=== PATIENT | female | born 1990 | race Caucasian/White ===

== ENCOUNTER → 2024-11-18 09:32 | Outpatient (CLI) | payer OTHER, SELFPAY ==
[2024-11-18 09:45] LABS: Hematocrit 33.5 % (36-46); Hemoglobin 11.5 g/dL (12.0-16.0)
== END ==
PROVIDERS: PCP Family Medicine; Referring Provider Family Medicine; Visit Provider Family Medicine
DX: O99.013 Anemia complicating pregnancy, third trimester (principal)
CPT/HCPCS: 36415; 85014; 85018; 86850; 86900; 86901

== ENCOUNTER → 2024-12-12 12:05 | Outpatient (CLI) | payer OTHER, SELFPAY ==
[2024-12-13 13:02] LABS: Strep Grp B PCR POS for Grp B Strep
== END ==
LOC: LAB 12:05
PROVIDERS: PCP Family Medicine; Visit Provider Family Medicine
DX: Z3A.36 36 weeks gestation of pregnancy (principal)
CPT/HCPCS: 87653

== ENCOUNTER 2024-12-26 23:02 | Inpatient (IN) | payer OTHER, SELFPAY ==
[2024-12-26] MEDS: AMPICILLIN 2,000 MG in SODIUM CHLORIDE 0.9% 100 ML 200 MG IV (23:42)
[2024-12-26 23:46] LABS: Add Manual Diff / Slide Review NO; Hematocrit 35.8 % (36-46); Hemoglobin 12.5 g/dL (12.0-16.0); Lymphocytes Absolute Auto 1500 /uL (1100-4500); Mean Corpuscular HGB Conc 34.9 % (30-36); Mean Corpuscular Hemoglobin 31.6 PG (26-34); Mean Corpuscular Volume 90.7 fL (80-100); Platelet Count 166 X10^3/uL (150-400)
[2024-12-27] MEDS: OXYTOCIN PREMIX 30 UNIT/500 ML PLAST..BAG 200 UNIT IV (01:20)
--- NOTE | 2024-12-27 01:32 | P.HPOB_ITS ---
OB HPI Date/Time Date of admission: 12/26/24 Date Patient Seen: 12/28/24 Time Patient Seen: 01:05 History of Present Condition Chief complaint: Labor FERNANDO Calculator 2 Estimated Delivery Date Method Current WG Current Estimate 01/04/25 LMP (Certain) 38w 6d : 4 Para: 2 Narrative: 34-year-old at [place] 38+6 weeks presenting for labor. Endorses normal movement. Denies vaginal bleeding or denies leakage of fluid. course notable for anemia on PO iron supplement. care: good care Dating criteria OB: LMP confirmed by 1st trimester US Ultrasounds: normal 1st trimester US and normal mid trimester US Obstetrical complications: none Medical complications OB: none Preadmission Labs Last OB Lab Results: 2 Blood Type O Positive 12/26/24, 23:32 Antibody Screen Negative 12/26/24, 23:32 Hct, (36-46) 35.8 % L 12/26/24, 23:32 Hgb, (12.0-16.0) 12.5 g/dL 12/26/24, 23:32 Group B Strep (PCR) Pos for grp b strep H 12/12/24, 12:08 Glucose Tolerance Testin hr -: Chlamydia screen: negative and Gonorrhea screen: negative Genetic Screens: Cell-free DNA: Normal Prior (ies) Past Pregnancies Del. Date GA/Weeks Labor Lgth Wt Sex Route Outcome Anesthesia Place Delv Breastfeed Preg Comp Name 12/11/19 ~8 spontaneous 10/06/20 38 4 7 lb 6 oz Female vaginal live - full ter m none [place], [place] 1 year other [place] 07/18/22 40.2 6 7 lb 13 oz Male vaginal live - full te rm epidural [place], [place] 1 year none [place] Delivery Date: 12/11/19 Last Updated by: Sofiya Zartae RN passed spontaneously, no complications Delivery Date: 10/06/20 Last Updated by: Sofiya Zarate RN [facility] 1st trimester, precip delivery Evaluation Evaluation Baseline heart rate: 155 Variability: Moderate (6-25) monitor accelerations: Present Monitor Decelerations: Early and Variable Contraction Frequency (minutes): 2 Status: Category ll Dilation (cm): 10 Effacement (%): 100 station: +2 [facility] Medical History (Updated 12/15/24 @ 11:05 by Sin Resendiz MD) Fractures Anemia affecting Abdominal hernia Surgical History (Updated 10/26/24 @ 20:18 by Carrie Elkins) Anesthesia History of umbilical hernia repair (~1998) [place] teeth extracted (~2011) Family History (Updated 10/26/24 @ 20:19 by Carrie Elkins) Father Hypertension Aunt Fuentes syndrome Mother ALS (amyotrophic lateral sclerosis) Hemochromatosis Grandmother History of heart disease Social History marital status: number of children: 2 household members: spouse and children lives independently: Yes caregiver/support person: Yes housing: house pets and animals: Yes (dogs) education level: master's degree (special education) occupational status: previously employed current occupational exposures/hazards: No special javier needs: No travel history: recent (domestic only) seatbelt use: always helmet use: Yes water heater temp set < 120 deg: Yes working smoke detector in home: Yes fire extinguisher in home: Yes carbon monox detector in home: Yes firearms in home: Yes firearms unloaded and locked: Yes do you feel safe at home: Yes Smoking Status: Never smoker second hand exposure: No alcohol intake: former (occasionally when not ) substance use type: does not use during the past year weight has: other (back to non- weight prior to conception) well-balanced diet: daily or most days daily servings fruits/ve or more times/day caffeine: Yes Type(s) of exercise: walking, weight lifting and running Meds Home Medications and Allergies Home Medications ?Medication ?Instructions ?Recorded ?Confirmed ?Type vitamin-ferrous sulfate tab PO 10/01/2411/28 History 27 mg iron-folic acid 0.8 mg tablet ferrous sulfate 325 mg (65 mg 325 mg PO Q OTHER DAY #3 0 tabs 11/28/24 11/28/24 Rx iron) tablet (FeroSul) Allergies Allergy/AdvReac Type Severity Reaction Status Date / Time No Known Drug Allergies Allergy Verified 12/26/24 11:43 OB Exam Narrative Exam Narrative: General: Well-nourished, no distress HEENT: NC/AT, EOMI, moist mucous membranes CV: RRR, normal S1 S2, no m/g/r Resp: CTAB Abd: Gravid, soft, NTND, +BS Ext: Full ROM, no edema Skin: No rash or lesions Neuro: A&O x3, normal tone, no focal deficits Objective Labs 12/26/24 23:32 Labs: Laboratory Results - last 24 hr 12/26/24 23:32 WBC 5.6 RBC 3.95 L Hgb 12.5 Hct 35.8 L MCV 90.7 MCH 31.6 MCHC 34.9 RDW 13.8 Plt Count 166 Neut % (Auto) 56.7 Lymph % (Auto) 26.3 [place] % (Auto) 13.7 Eos % (Auto) 0.9 L Baso % (Auto) 2.4 H Neut # (Auto) 3200 Lymph # (Auto) 1500 [place] # (Auto) 800 Eos # (Auto) 0 Baso # (Auto) 100 Blood Type O Positive Antibody Screen Negative Assessment and Plan Assessment and Plan Assessment and Plan narrative: 34-year-old at [place] 38+3 weeks presenting for labor. -admit to L&D -GBS positive, ppx indicated -pain control prn if desired by patient -PPH risk low -VTE risk low, SCDs with epidural -anticipate vaginal delivery Time-Based Coding :: 20 minutes spent with patient and on the chart (including review of chart, obtaining history, exam, reviewing outside data, placing orders, documenting exam and treatment plan, and counseling patient) on 12/27/2024.
--- NOTE | 2024-12-27 01:40 | P.PCNOB_ITS ---
Labor & Delivery Delivery date: 12/27/24 Delivery Time: 01:15 Intrapartal Events: Acceleration and Deceleration Delivery monitor: external FHT and external uterine Route of delivery: L&D Laceration Description: None Estimated blood loss (mL): 300 Narrative: Patient fully dilated at 0048 and began pushing at 0114. Spontaneous vaginal delivery of a viable male infant in the DENISSE position occurred at 0115. The was suctioned and stimulated at the perineum, and gave appropriate cry with movement of all extremities. Delayed cord clamping was observed for > 60 seconds. The cord was clamped and cut, and the handed to mother for skin to skin. Cord blood and segment were obtained. The placenta was delivered without difficulty using gentle cord traction and found to be intact with a 3- vessel cord. After fundal massage the uterus was firm and bleeding stopped. The vagina and cervix were examined for lacerations, with none noted Patient stable with rooming in, bonding skin to skin and attempting to breastfeed. [place] Baby 1: Infant gender: Male Presentation: vertex Position: Left Occiput Anterior Placenta delivery description: Spontaneous Cord Vessel Description: 3 Vessels score (1 min): 9 score (5 min): 9 weight: 7 lb 15.621 oz Plan for aftercare: Routine care
[2024-12-27] MEDS: LACTATED RINGERS 1,000 ML 100 ML IV (03:16)
--- NOTE | 2024-12-27 08:27 | PM.AN.REGBLK ---
Regional Block Pre-procedure Procedure: Continuous Lumbar Epidural for L&D Attending OB provider: Sin Resendiz PMH/ROS narrative: at [place] 38+6 active labor. No obstetric or medical complications. h/p precipitous delivery. ASA Class: II Labs: Hct 35.8 % (36-46) L 12/26/24 23:32 Plt Count 166 X10^3/uL (150-400) 12/26/24 23:32 Medications: Current Medications Generic Name Dose Route Start Last Admin Trade Name Freq PRN Reason Stop Dose Admin Acetaminophen 650 mg 12/27/24 03:17 Acetaminophen 325 Mg Tablet PO Q6H PRN Pain, Mild (1-3) Benzocaine 1 spray 12/27/24 03:17 Dermoplast [place] 20% 60 Ml TOP Q1HR PRN Pain, Moderate (4-6) Carboprost Tromethamine 250 mcg 12/27/24 03:17 Carboprost 250 Mcg/Ml Ampul IM Q20MIN PRN Uterine Bleeding Emollient Ointment 1 applic 12/27/24 03:17 Lanolin Oint 7 Gm TOP PRN PRN Sore Nipples Oxytocin/Lactated Ringer's 30 unit in 500 mls @ 95 mls/hr 12/27/24 03:17 Oxytocin Premix IV 12/27/24 08:32 NOW ONE Protocol Tranexamic Acid 1,000 mg/ 100 mls @ 600 mls/hr 12/27/24 03:17 Sodium Chloride IV NOW PRN Uterine Bleeding Ibuprofen 600 mg 12/28/24 01:45 Ibuprofen 600 Mg Tablet PO Q6H MARTINE Methylergonovine Maleate 0.2 mg 12/27/24 03:17 Methylergonovine 0.2 Mg/Ml Vial IM NOW PRN Uterine Bleeding Misoprostol 800 mcg 12/27/24 03:17 Misoprostol 200 Mcg Tablet SL NOW PRN Uterine Bleeding Naloxone HCl 0.2 mg 12/27/24 03:17 Naloxone 0.4 Mg/Ml Vial IV Q2MIN PRN Opiate Reversal Oxytocin 10 unit 12/27/24 03:17 Oxytocin 10 Unit/Ml Vial IM NOW PRN Uterine Bleeding Witch Mounika/Glycerin 1 each 12/27/24 03:17 Witch [place]/Glycerin Pads TOP Q30M PRN Itching Allergies: Allergies Allergy/AdvReac Type Severity Reaction Status Date / Time No Known Drug Allergies Allergy Verified 12/26/24 11:43 Procedure Insertion date: 12/27/24 Insertion time: 00:10 Prep/Local: betadine x3 and 1% lidocaine Interspace: L34 Patient position: sitting Needle: 18 gauge Hustead (CSE: 27g Pencan through Hustead, clear CSF, 1mL 0.25% MPF bupiv) Loss of resistance with: saline ILIA at (cm): 3 Catheter placed at SKIN (cm): 8 Catheter in SPACE (cm): 5 Insertion: No CSF, No Blood, No Paresthesia with insertion, No Paresthesia with injection and No Test dose reaction Initial Medications TEST DOSE time: 00:11 TEST DOSE: 1.5% lidocaine with epinephrine 1:200k (mL): 3 BOLUS DOSE time: 00:21 BOLUS DOSE (mL): 3 BOLUS DOSE med: other (infusate) Infusion INFUSION: 0.125% bupivacaine and with fentanyl 2 mcg/mL Initial rate (mL/hr): 8 Post-procedure Anesthesia date START: 12/26/24 Anesthesia time START: 23:59 Anesthesia date END: 12/27/24 Anesthesia time END: 01:25 Post-procedure Anesthesia Assessment: Yes CV function: HR/BP stable, Yes Resp function: RR/sat/airway adequate, Yes Post-op hydration adequate, Yes Pain control adequate, Yes Nausea & vomiting absent, Yes Temperature > 36 C, Yes Mental status appropriate and No Anesthesia complications
[2024-12-27] MEDS: DERMOPLAST SPRAY 20% 60 ML 1 SPRAY TOP (09:21)
[2024-12-27] MEDS: ACETAMINOPHEN 325 MG TABLET 650 MG PO (14:29)
[2024-12-27] MEDS: IBUPROFEN 600 MG TABLET PO (14:29)
--- NOTE | 2024-12-27 18:05 | PM.OBDS.1 ---
Discharge Providers Provider Date of admission: 12/26/24 23:02 Discharge Date: 12/27/24 Primary care physician: Sin Resendiz MD Consults: 12/26/24 23:22 Consult to Anesthesiology Urgent Comment: Consulting Provider: Anesthesiologist Reason for consultation: Epidural Has provider been notified: No 12/27/24 03:17 Consult to Customer Quality Engineer Routine Comment: Discharge provider: Sin Resendiz MD Summary Hospital Course Date Patient Seen: 12/27/24 Time Patient Seen: 18:05 Diagnoses: # # mother Hospital Course: Admitted for normal labor on 12/26/2024. Progressed adequately without augmentation to complete dilation over the course of 4 hours. She had an uncomplicated of a live male infant with no lacerations. Her course was uncomplicated. At discharge patient is ambulating well, tolerating normal diet, breast-feeding without difficulty, and pain is adequately controlled. She reports bleeding is slightly heavier than normal menses. Peripartum Data Delivery Method: Natural Vaginal Laceration Description: None 1: Gender: Male Disposition of : home Discharge Diagnosis (1) (spontaneous vaginal delivery): Status: Acute (2) Breast feeding status of mother: Status: Acute Status at Discharge Cognitive/behavioral status at discharge: at baseline, oriented Functional status at discharge: independent ambulation Overall status at discharge: patient is back to baseline Time Spent with Patient Time attestation: Total time spent providing and/or coordinating discharge services: 30 minutes Objective Labs 12/26/24 23:32 Labs: Laboratory Results - last 24 hr 12/26/24 23:32 WBC 5.6 RBC 3.95 L Hgb 12.5 Hct 35.8 L MCV 90.7 MCH 31.6 MCHC 34.9 RDW 13.8 Plt Count 166 Neut % (Auto) 56.7 Lymph % (Auto) 26.3 [place] % (Auto) 13.7 Eos % (Auto) 0.9 L Baso % (Auto) 2.4 H Neut # (Auto) 3200 Lymph # (Auto) 1500 [place] # (Auto) 800 Eos # (Auto) 0 Baso # (Auto) 100 Blood Type O Positive Antibody Screen Negative Exam Narrative Exam Narrative: General: Well-appearing, well-nourished, no distress HEENT: Moist mucous membranes, no pallor CV: Regular rate and rhythm, no murmur auscultated Resp: CTAB, comfortable work of breathing Abdomen: Soft, bowel sounds present, fundus firm below umbilicus with appropriate tenderness Extremities: No edema, no calf tenderness or evidence of DVT Discharge Plan Discharge Plan Patient Disposition: Home Discharge orders & Medications Prescriptions: New ibuprofen 600 mg Tablet 600 mg PO Q6H Qty: 60 1RF acetaminophen 325 mg Tablet 650 mg PO Q6H PRN (Reason: Pain, Mild (1-3)) Qty: 60 1RF Purelan Cream 1 applic topical PRN PRN (Reason: Sore Nipples) Qty: 7 11RF polyethylene glycol 3350 17 gram/dose powder 17 g PO DAILY Qty: 510 1RF Continued ferrous sulfate [FeroSul] 325 mg (65 mg iron) tablet 325 mg PO Q OTHER DAY Qty: 30 1RF vit-ferrous sulfat-FA 27 mg iron- 0.8 mg tablet PO Follow up/Referrals: Sin Resendiz MD [Primary Care Provider, Family Practice] Visit Report/Discharge Packet Stand Alone Forms: Patient Portal/API, Stroke Signs & Symptoms Discharge Data Primary Care Provider: Sin Resendiz Attending Provider: Sin Resendiz Admit Date/Time: 12/26/24 23:02
== END 2024-12-27 19:40 | disposition home or self-care (01) | DRG 807 ==
PROVIDERS: Admitting Provider Family Medicine; PCP Family Medicine; Referring Provider Family Medicine; Visit Provider Family Medicine
DX: O99.02 Anemia complicating childbirth (principal); Z37.0 Single live birth; O99.824 Streptococcus B carrier state complicating childbirth; Z3A.38 38 weeks gestation of pregnancy; O76 Abnormality in fetal heart rate and rhythm complicating labor and delivery
CPT/HCPCS: 36415; 59050; 85025; 86850; 86900; 86901; G0378; G0379; J0290; J2590; J7050; J7120